=== PATIENT | male | born 1945 | race African-American/Black ===

== ENCOUNTER 2021-06-10 16:49 | Inpatient (IN) | payer BC ==
[~2021-06-10] VITALS: Ht 172.7 cm; Wt 41.7 kg
[2021-06-10] MEDS ORDERED: SODIUM POLYSTYRENE SULFONATE 15 G/60 ML BOT PO ONE (17:15)
[2021-06-10] MEDS ORDERED: DEXTROSE 50% WATER 50ML SYRINGE IV ONE (17:15)
[2021-06-10] MEDS ORDERED: CALCIUM GLUCONATE 100MG/ML 10ML VIAL IV ONE (17:15)
[2021-06-10] MEDS ORDERED: ALBUTEROL (0.083%) 2.5MG/3ML NEB HHN ONE (17:15)
[2021-06-10] MEDS ORDERED: INSULIN REGULAR (HUMULIN R) 300UNITS/3ML VIAL IV ONE (17:15)
[2021-06-10] MEDS ORDERED: SODIUM BICARBONATE 8.4% 1 MEQ/ML 50ML SYR IV ONE (17:15)
[2021-06-10 18:47] LABS: CHLORIDE 118 mEq/L (98-107)
[2021-06-10 18:49] LABS: HEMATOCRIT. 42.5 % (42.0-52.0); HEMOGLOBIN. 13.9 g/dL (14.0-18.0); MEAN CORPUSCULAR HEMOGLOBIN 27.3 pg (28.0-32.0); MEAN CORPUSCULAR VOLUME 83.5 fL (80.0-94.0); MEAN PLATELET VOLUME 8.8 fl (7.4-10.4); PLATELET 242 x1000/uL (130-400); RED BLOOD CELL COUNT 5.09 mill/uL (4.7-6.1); RED CELL DISTRIBUTION WIDTH 14.5 % (11.6-14.6)
[2021-06-10] MEDS ORDERED: CEFTRIAXONE 1 G PREMIX 50 ML IV ONE (19:30)
[2021-06-10] MEDS ORDERED: AZITHROMYCIN 500MG/250ML 250 ML IV ONE (19:30)
[2021-06-10] MEDS ORDERED: SODIUM CHLORIDE 0.9% 1,000 ML IV ONE (19:30)
[2021-06-10 21:21] LABS: PLATELET ESTIMATE NORMAL
[2021-06-10] MEDS ORDERED: SODIUM POLYSTYRENE SULFONATE 15 G/60 ML BOT PO NR (22:30)
[2021-06-10] MEDS ORDERED: ACETAMINOPHEN 325MG TABLET PO PRN ×2 (23:00)
[2021-06-10] MEDS ORDERED: CLONIDINE 0.1MG TABLET PO PRN (23:00)
[2021-06-10] MEDS ORDERED: ZOLPIDEM TARTRATE 5MG TABLET PO PRN (23:00)
[2021-06-10] MEDS ORDERED: GUAIFENESIN 200MG/10ML SUGAR FREE UDC PO PRN (23:00)
[2021-06-10] MEDS ORDERED: ONDANSETRON HCL 4MG/2ML INJ IV PRN (23:00)
[2021-06-11 00:42] LABS: CLARITY URINE CLEAR (CLEAR); COLOR URINE YELLOW (YELLOW); KETONES URINE NEGATIVE (NEGATIVE); LEUKOCYTE ESTERASE URINE NEGATIVE (NEGATIVE); NITRITE URINE NEGATIVE (NEGATIVE); OCCULT BLOOD URINE TRACE (NEGATIVE); PROTEIN URINE 3+ (NEGATIVE); SPECIFIC GRAVITY URINE 1.018 (1.005-1.030); UROBILINOGEN URINE 0.2 E.U./dL (0.2-1.0)
[2021-06-11] MEDS ORDERED: ASPIRIN 81MG TABLET PO ONE (01:15)
[2021-06-11] MEDS ORDERED: ALBUTEROL (0.083%) 2.5MG/3ML NEB HHN SCH (02:00)
[2021-06-11 04:55] LABS: BASOPHILS % 0.1 % (0.0-2.0); HEMATOCRIT. 39.5 % (42.0-52.0); HEMOGLOBIN. 13.1 g/dL (14.0-18.0); LYMPHOCYTES % 17.6 % (20.0-50.0); MEAN CORPUSCULAR HEMOGLOBIN 27.5 pg (28.0-32.0); MEAN CORPUSCULAR VOLUME 82.7 fL (80.0-94.0); MEAN PLATELET VOLUME 8.9 fl (7.4-10.4); MONOCYTES % 11.3 % (2.0-8.0); PLATELET 215 x1000/uL (130-400); RED BLOOD CELL COUNT 4.77 mill/uL (4.7-6.1)
[2021-06-11] MEDS: SODIUM CHLORIDE 0.9% INJ 3ML FLUSH IVF SCH ×3 (05:35→21:50)
[2021-06-11] MEDS: ENOXAPARIN 30MG/0.3ML SYR SUBCUT SCH (09:29)
[2021-06-11] MEDS: DEXTROSE 5% WATER 1,000 ML IV SCH ×2 (09:29→21:49)
[2021-06-11] MEDS: DEXAMETHASONE 10 MG/ML VIAL IV SCH (09:29)
[2021-06-11] MEDS: DEXT 5%/0.2% NACL 1,000 ML IV SCH ×2 (09:45→19:45)
[2021-06-11 11:37] VITALS: BP 135/73
[2021-06-11 11:40] VITALS: BP 135/73
[2021-06-11 16:00] VITALS: BP 118/69
[2021-06-11] MEDS: DOXYCYCLINE HYCLATE 100MG CAPSULE PO SCH (17:57)
[2021-06-11 20:00] VITALS: BP 135/60
[2021-06-11] MEDS ORDERED: CEFTRIAXONE 1 G PREMIX 50 ML IV SCH (20:00)
[2021-06-11] MEDS: CEFTRIAXONE 1,000 MG in DEXTROSE 5% WATER 50 ML IV SCH (21:49)
[2021-06-11 22:00] VITALS: BP 128/75
[2021-06-12 06:00] VITALS: BP 131/75
[2021-06-12] MEDS: SODIUM CHLORIDE 0.9% INJ 3ML FLUSH IVF SCH ×3 (06:00→21:43)
[2021-06-12] MEDS: DEXT 5%/0.2% NACL 1,000 ML IV SCH ×2 (06:57→17:36)
[2021-06-12 08:00] VITALS: BP 141/78
[2021-06-12] MEDS: DOXYCYCLINE HYCLATE 100MG CAPSULE PO SCH ×2 (09:11→21:43)
[2021-06-12] MEDS: ENOXAPARIN 30MG/0.3ML SYR SUBCUT SCH (09:11)
[2021-06-12] MEDS: DEXAMETHASONE 10 MG/ML VIAL IV SCH (09:11)
[2021-06-12 12:00] VITALS: BP 134/66
[2021-06-12 16:00] VITALS: BP 128/70
[2021-06-12 20:00] VITALS: BP 130/86
[2021-06-12] MEDS: CEFTRIAXONE 1,000 MG in DEXTROSE 5% WATER 50 ML IV SCH (21:43)
[2021-06-13] MEDS: DEXT 5%/0.2% NACL 1,000 ML IV SCH ×3 (01:19→21:52)
[2021-06-13 04:00] VITALS: BP 117/64
[2021-06-13] MEDS: SODIUM CHLORIDE 0.9% INJ 3ML FLUSH IVF SCH ×3 (06:19→21:52)
[2021-06-13 08:00] VITALS: BP_SYST 141; BP_SYST 165; BP_DIAS 107; BP_DIAS 72
[2021-06-13] MEDS: DEXAMETHASONE 10 MG/ML VIAL IV SCH (08:32)
[2021-06-13] MEDS: DOXYCYCLINE HYCLATE 100MG CAPSULE PO SCH ×2 (08:32→21:52)
[2021-06-13] MEDS: ENOXAPARIN 30MG/0.3ML SYR SUBCUT SCH (09:23)
[2021-06-13 11:21] LABS: HEMATOCRIT. 37.8 % (42.0-52.0); HEMOGLOBIN. 12.3 g/dL (14.0-18.0); MEAN CORPUSCULAR VOLUME 83.4 fL (80.0-94.0); MEAN PLATELET VOLUME 8.6 fl (7.4-10.4); PLATELET 314 x1000/uL (130-400); RED BLOOD CELL COUNT 4.54 mill/uL (4.7-6.1); RED CELL DISTRIBUTION WIDTH 14.3 % (11.6-14.6)
[2021-06-13 12:00] VITALS: BP 133/76
[2021-06-13] MEDS ORDERED: SODIUM POLYSTYRENE SULFONATE 15 G/60 ML BOT PO SCH (14:00)
[2021-06-13 16:00] VITALS: BP 127/67
[2021-06-13 20:00] VITALS: BP 132/67
[2021-06-13] MEDS: CEFTRIAXONE 1,000 MG in DEXTROSE 5% WATER 50 ML IV SCH (21:52)
[2021-06-13 23:42] LABS: PLATELET ESTIMATE NORMAL
[2021-06-14 04:00] VITALS: BP 147/83
[2021-06-14] MEDS: SODIUM CHLORIDE 0.9% INJ 3ML FLUSH IVF SCH ×3 (05:02→21:14)
[2021-06-14] MEDS: DEXT 5%/0.2% NACL 1,000 ML IV SCH ×2 (06:35→18:16)
[2021-06-14 07:01] LABS: BASOPHILS % 0.1 % (0.0-2.0); HEMATOCRIT. 36.8 % (42.0-52.0); HEMOGLOBIN. 12.3 g/dL (14.0-18.0); LYMPHOCYTES % 8.1 % (20.0-50.0); MEAN CORPUSCULAR HEMOGLOBIN 27.5 pg (28.0-32.0); MEAN CORPUSCULAR VOLUME 82.5 fL (80.0-94.0); MEAN PLATELET VOLUME 8.2 fl (7.4-10.4); MONOCYTES % 10.7 % (2.0-8.0); NEUTROPHILS % 81.1 % (40.0-76.0); PLATELET 307 x1000/uL (130-400); RED BLOOD CELL COUNT 4.46 mill/uL (4.7-6.1); RED CELL DISTRIBUTION WIDTH 14.2 % (11.6-14.6)
[2021-06-14 08:00] VITALS: BP 146/79
[2021-06-14] MEDS: ENOXAPARIN 30MG/0.3ML SYR SUBCUT SCH (08:35)
[2021-06-14] MEDS: DOXYCYCLINE HYCLATE 100MG CAPSULE PO SCH ×2 (08:35→20:39)
[2021-06-14] MEDS: DEXAMETHASONE 10 MG/ML VIAL IV SCH (08:35)
[2021-06-14 12:00] VITALS: BP 120/57
[2021-06-14 16:00] VITALS: BP 149/67
[2021-06-14 20:00] VITALS: BP 136/67
[2021-06-14] MEDS: CEFTRIAXONE 1,000 MG in DEXTROSE 5% WATER 50 ML IV SCH (20:40)
[2021-06-15 04:00] VITALS: BP 130/69
[2021-06-15] MEDS: SODIUM CHLORIDE 0.9% INJ 3ML FLUSH IVF SCH ×3 (04:37→21:14)
[2021-06-15] MEDS: DEXT 5%/0.2% NACL 1,000 ML IV SCH ×2 (04:37→14:02)
[2021-06-15 06:44] LABS: BASOPHILS % 0.1 % (0.0-2.0); HEMATOCRIT. 34.9 % (42.0-52.0); HEMOGLOBIN. 11.9 g/dL (14.0-18.0); LYMPHOCYTES % 10.6 % (20.0-50.0); MEAN CORPUSCULAR VOLUME 82.2 fL (80.0-94.0); MEAN PLATELET VOLUME 8.1 fl (7.4-10.4); NEUTROPHILS % 78.3 % (40.0-76.0); PLATELET 296 x1000/uL (130-400); RED BLOOD CELL COUNT 4.24 mill/uL (4.7-6.1); RED CELL DISTRIBUTION WIDTH 14.1 % (11.6-14.6)
[2021-06-15 08:00] VITALS: BP 148/61
[2021-06-15] MEDS: ENOXAPARIN 30MG/0.3ML SYR SUBCUT SCH (10:01)
[2021-06-15] MEDS: DEXAMETHASONE 10 MG/ML VIAL IV SCH (10:01)
[2021-06-15] MEDS: DOXYCYCLINE HYCLATE 100MG CAPSULE PO SCH ×2 (10:01→21:14)
[2021-06-15 12:00] VITALS: BP 136/60
[2021-06-15 13:06] LABS: ANTI-NUCLEAR ANTIBODIES DIRECT Positive (Negative)
[2021-06-15 16:00] VITALS: BP 137/67
[2021-06-15 20:00] VITALS: BP 138/63
[2021-06-15] MEDS: CEFTRIAXONE 1,000 MG in DEXTROSE 5% WATER 50 ML IV SCH (21:14)
[2021-06-16] MEDS: DEXT 5%/0.2% NACL 1,000 ML IV SCH ×3 (02:51→21:35)
[2021-06-16 04:00] VITALS: BP 139/68
[2021-06-16] MEDS: SODIUM CHLORIDE 0.9% INJ 3ML FLUSH IVF SCH ×3 (05:13→21:35)
[2021-06-16 08:00] VITALS: BP 136/45
[2021-06-16] MEDS: ENOXAPARIN 30MG/0.3ML SYR SUBCUT SCH (09:22)
[2021-06-16] MEDS: DEXAMETHASONE 10 MG/ML VIAL IV SCH (09:22)
[2021-06-16] MEDS: DOXYCYCLINE HYCLATE 100MG CAPSULE PO SCH ×2 (09:22→21:35)
[2021-06-16 12:00] VITALS: BP 124/64
[2021-06-16 16:00] VITALS: BP 121/61
[2021-06-16 20:00] VITALS: BP_SYST 119; BP_SYST 123; BP_DIAS 61; BP_DIAS 63
[2021-06-16] MEDS: CEFTRIAXONE 1,000 MG in DEXTROSE 5% WATER 50 ML IV SCH (21:35)
[2021-06-17 04:00] VITALS: BP 140/68
[2021-06-17] MEDS: SODIUM CHLORIDE 0.9% INJ 3ML FLUSH IVF SCH ×3 (05:27→21:22)
[2021-06-17] MEDS: DEXT 5%/0.2% NACL 1,000 ML IV SCH (05:28)
[2021-06-17 08:00] VITALS: BP 141/54
[2021-06-17] MEDS: DEXAMETHASONE 10 MG/ML VIAL IV SCH (09:31)
[2021-06-17] MEDS: DOXYCYCLINE HYCLATE 100MG CAPSULE PO SCH ×2 (09:31→21:22)
[2021-06-17] MEDS: ENOXAPARIN 30MG/0.3ML SYR SUBCUT SCH (09:31)
[2021-06-17 12:00] VITALS: BP 117/60
[2021-06-17 16:00] VITALS: BP 119/51
[2021-06-17] MEDS ORDERED: SODIUM POLYSTYRENE SULFONATE 15 G/60 ML BOT PO NR (17:00)
[2021-06-17 20:00] VITALS: BP 138/64
[2021-06-18] VITALS: BP 135/66
[2021-06-18 04:00] VITALS: BP 130/68
[2021-06-18] MEDS: SODIUM CHLORIDE 0.9% INJ 3ML FLUSH IVF SCH ×3 (05:31→20:28)
[2021-06-18 08:00] VITALS: BP 136/69
[2021-06-18] MEDS: DEXAMETHASONE 10 MG/ML VIAL IV SCH (09:02)
[2021-06-18] MEDS: ENOXAPARIN 30MG/0.3ML SYR SUBCUT SCH (09:02)
[2021-06-18] MEDS: DOXYCYCLINE HYCLATE 100MG CAPSULE PO SCH ×2 (09:02→20:27)
[2021-06-18 12:00] VITALS: BP 126/61
[2021-06-18 16:00] VITALS: BP 136/63
[2021-06-18 20:00] VITALS: BP 139/66
[2021-06-18 21:29] LABS: BASOPHILS % 0.1 % (0.0-2.0); HEMATOCRIT. 35.1 % (42.0-52.0); HEMOGLOBIN. 11.7 g/dL (14.0-18.0); LYMPHOCYTES % 15.1 % (20.0-50.0); MEAN CORPUSCULAR HEMOGLOBIN 27.3 pg (28.0-32.0); MEAN CORPUSCULAR VOLUME 81.9 fL (80.0-94.0); MEAN PLATELET VOLUME 8.2 fl (7.4-10.4); NEUTROPHILS % 74.8 % (40.0-76.0); PLATELET 361 x1000/uL (130-400); RED BLOOD CELL COUNT 4.29 mill/uL (4.7-6.1)
[2021-06-19] VITALS: BP 137/74
[2021-06-19 04:00] VITALS: BP 147/63
[2021-06-19] MEDS: SODIUM CHLORIDE 0.9% INJ 3ML FLUSH IVF SCH ×3 (05:12→21:05)
[2021-06-19] MEDS ORDERED: DEXTROSE 50% WATER 50ML SYRINGE IV NR (06:15)
[2021-06-19] MEDS ORDERED: SODIUM BICARBONATE 8.4% 1 MEQ/ML 50ML SYR IV NR (06:15)
[2021-06-19] MEDS ORDERED: SODIUM POLYSTYRENE SULFONATE 15 G/60 ML BOT PO NR (06:15)
[2021-06-19] MEDS ORDERED: INSULIN REGULAR (HUMULIN R) UD 100 UNITS/ML SYR IV NR (07:00)
[2021-06-19 08:00] VITALS: BP 143/67
[2021-06-19] MEDS: DOXYCYCLINE HYCLATE 100MG CAPSULE PO SCH ×2 (08:27→21:05)
[2021-06-19] MEDS: DEXAMETHASONE 10 MG/ML VIAL IV SCH (08:27)
[2021-06-19] MEDS: ENOXAPARIN 30MG/0.3ML SYR SUBCUT SCH (08:28)
[2021-06-19 10:50] LABS: BASOPHILS % 0.2 % (0.0-2.0); EOSINOPHILS % 0.1 % (0.0-5.0); HEMATOCRIT. 35.9 % (42.0-52.0); HEMOGLOBIN. 12.2 g/dL (14.0-18.0); LYMPHOCYTES % 8.4 % (20.0-50.0); MEAN CORPUSCULAR HEMOGLOBIN 27.4 pg (28.0-32.0); MEAN PLATELET VOLUME 7.8 fl (7.4-10.4); MONOCYTES % 6.9 % (2.0-8.0); NEUTROPHILS % 84.4 % (40.0-76.0); PLATELET 422 x1000/uL (130-400); RED BLOOD CELL COUNT 4.43 mill/uL (4.7-6.1); RED CELL DISTRIBUTION WIDTH 13.9 % (11.6-14.6)
[2021-06-19 12:00] VITALS: BP 143/70
[2021-06-19 16:00] VITALS: BP 137/60
[2021-06-19 20:00] VITALS: BP 133/62
[2021-06-20] VITALS: BP 150/71
[2021-06-20 04:00] VITALS: BP 139/69
[2021-06-20] MEDS: SODIUM CHLORIDE 0.9% INJ 3ML FLUSH IVF SCH ×3 (05:48→21:00)
[2021-06-20 08:00] VITALS: BP 150/66
[2021-06-20] MEDS: DOXYCYCLINE HYCLATE 100MG CAPSULE PO SCH ×2 (08:16→21:00)
[2021-06-20] MEDS: ENOXAPARIN 30MG/0.3ML SYR SUBCUT SCH (08:17)
[2021-06-20] MEDS: DEXAMETHASONE 10 MG/ML VIAL IV SCH (08:17)
[2021-06-20 12:00] VITALS: BP 138/79
[2021-06-20 14:13] LABS: BG BASE EXCESS -2.7 mmol/L (-2.0-2.0); BG CARBOXYHEMOGLOBIN 0.5 % (0.5-1.5); BG DEOXYHEMOGLOBIN 17.6 % (0.0-5.0); BG FRACTION INSPIRED OXYGEN 21; BG HCO3 ACT 20.7 mmol/L (22.0-26.0); BG METHEMOGLOBIN 0.1 % (0.0-1.5); BG OXYGEN SATURATION 82.3 % (92.0-98.5); BG OXYHEMOGLOBIN 81.8 % (94.0-97.0); BG PCO2 31.5 mmHg (35.0-45.0); BG PH 7.435 (7.350-7.450); BG PO2 44.7 mmHg (75.0-100.0); BG SAMPLE SITE RIGHT BRACHIAL; BG TOTAL HEMOGLOBIN 12.3 g/dL (12.0-18.0); BG VENT MODE ROOM AIR
[2021-06-20 16:00] VITALS: BP 112/73
[2021-06-20 20:00] VITALS: BP 128/61
[2021-06-21] VITALS: BP 130/72
[2021-06-21 04:00] VITALS: BP 144/57
[2021-06-21] MEDS: SODIUM CHLORIDE 0.9% INJ 3ML FLUSH IVF SCH ×3 (05:03→21:02)
[2021-06-21 08:00] VITALS: BP 138/74
[2021-06-21] MEDS: DEXAMETHASONE 10 MG/ML VIAL IV SCH (08:45)
[2021-06-21] MEDS: DOXYCYCLINE HYCLATE 100MG CAPSULE PO SCH ×2 (08:45→21:01)
[2021-06-21] MEDS: ENOXAPARIN 30MG/0.3ML SYR SUBCUT SCH (08:45)
[2021-06-21 08:56] LABS: BASOPHILS % 0.1 % (0.0-2.0); EOSINOPHILS % 0.3 % (0.0-5.0); HEMOGLOBIN. 11.3 g/dL (14.0-18.0); LYMPHOCYTES % 19.5 % (20.0-50.0); MEAN CORPUSCULAR HEMOGLOBIN 26.5 pg (28.0-32.0); MEAN CORPUSCULAR VOLUME 81.9 fL (80.0-94.0); MEAN PLATELET VOLUME 7.5 fl (7.4-10.4); MONOCYTES % 8.6 % (2.0-8.0); NEUTROPHILS % 71.5 % (40.0-76.0); PLATELET 399 x1000/uL (130-400); RED BLOOD CELL COUNT 4.28 mill/uL (4.7-6.1); RED CELL DISTRIBUTION WIDTH 13.9 % (11.6-14.6)
[2021-06-21 12:00] VITALS: BP 126/60
[2021-06-21 16:00] VITALS: BP 126/56
[2021-06-21 20:00] VITALS: BP 126/54
[2021-06-22] VITALS: BP 147/67
[2021-06-22 04:00] VITALS: BP 135/67
[2021-06-22] MEDS: SODIUM CHLORIDE 0.9% INJ 3ML FLUSH IVF SCH ×3 (06:50→20:42)
[2021-06-22 08:00] VITALS: BP 147/60
[2021-06-22] MEDS: DEXAMETHASONE 10 MG/ML VIAL IV SCH (08:17)
[2021-06-22] MEDS: ENOXAPARIN 30MG/0.3ML SYR SUBCUT SCH (08:17)
[2021-06-22 12:00] VITALS: BP 130/56
[2021-06-22 16:00] VITALS: BP 122/58
[2021-06-22 20:00] VITALS: BP 137/65
[2021-06-23] VITALS (7 sets, daily range): BP systolic 123–141; BP diastolic 54–88
[2021-06-23] MEDS: SODIUM CHLORIDE 0.9% INJ 3ML FLUSH IVF SCH ×3 (06:28→21:18)
[2021-06-23] MEDS: ENOXAPARIN 30MG/0.3ML SYR SUBCUT SCH (08:31)
[2021-06-23] MEDS ORDERED: IPRATROPIUM/ALBUTEROL 0.5-3(2.5)MG/3ML NEB HHN PRN (13:30)
[2021-06-23] MEDS: IPRATROPIUM/ALBUTEROL 0.5-3(2.5)MG/3ML NEB HHN SCH (21:08)
[2021-06-24] VITALS: BP 142/71
[2021-06-24] MEDS: IPRATROPIUM/ALBUTEROL 0.5-3(2.5)MG/3ML NEB HHN SCH ×4 (02:24→21:09)
[2021-06-24 04:00] VITALS: BP 142/71
[2021-06-24] MEDS: SODIUM CHLORIDE 0.9% INJ 3ML FLUSH IVF SCH ×3 (06:29→21:43)
[2021-06-24 08:00] VITALS: BP 135/59
[2021-06-24] MEDS ORDERED: MORPHINE SULFATE 2 MG/ML CPJ (NOT FOR IM USE) IV SCH (08:30)
[2021-06-24] MEDS: ENOXAPARIN 30MG/0.3ML SYR SUBCUT SCH (10:11)
[2021-06-24 12:00] VITALS: BP 125/62
[2021-06-24 16:00] VITALS: BP 150/66
[2021-06-24 20:00] VITALS: BP 145/85
[2021-06-25] VITALS: BP 133/72
[2021-06-25] MEDS: IPRATROPIUM/ALBUTEROL 0.5-3(2.5)MG/3ML NEB HHN SCH ×4 (01:29→20:21)
[2021-06-25 04:00] VITALS: BP 134/68
[2021-06-25] MEDS: SODIUM CHLORIDE 0.9% INJ 3ML FLUSH IVF SCH ×3 (05:57→21:03)
[2021-06-25 08:05] VITALS: BP 132/88
[2021-06-25] MEDS: ENOXAPARIN 30MG/0.3ML SYR SUBCUT SCH (08:54)
[2021-06-25 12:28] VITALS: BP 138/68
[2021-06-25 13:01] LABS: BASOPHILS % 0.2 % (0.0-2.0); EOSINOPHILS % 0.2 % (0.0-5.0); HEMATOCRIT. 37.2 % (42.0-52.0); HEMOGLOBIN. 12.4 g/dL (14.0-18.0); LYMPHOCYTES % 9.2 % (20.0-50.0); MEAN CORPUSCULAR HEMOGLOBIN 27.2 pg (28.0-32.0); MEAN CORPUSCULAR VOLUME 81.6 fL (80.0-94.0); MEAN PLATELET VOLUME 7.7 fl (7.4-10.4); MONOCYTES % 12.1 % (2.0-8.0); NEUTROPHILS % 78.3 % (40.0-76.0); PLATELET 372 x1000/uL (130-400); RED BLOOD CELL COUNT 4.55 mill/uL (4.7-6.1); RED CELL DISTRIBUTION WIDTH 13.7 % (11.6-14.6)
[2021-06-25 16:25] VITALS: BP 132/84
[2021-06-25 17:16] LABS: BG BASE EXCESS -2.6 mmol/L (-2.0-2.0); BG CARBOXYHEMOGLOBIN 0.2 % (0.5-1.5); BG FRACTION INSPIRED OXYGEN 21; BG HCO3 ACT 19.8 mmol/L (22.0-26.0); BG METHEMOGLOBIN 0.1 % (0.0-1.5); BG OXYHEMOGLOBIN 87.7 % (94.0-97.0); BG PCO2 27.9 mmHg (35.0-45.0); BG PO2 50.9 mmHg (75.0-100.0); BG SAMPLE SITE LEFT BRACHIAL; BG TOTAL HEMOGLOBIN 12.7 g/dL (12.0-18.0); BG VENT MODE ROOM AIR
[2021-06-25 20:00] VITALS: BP 148/74
[2021-06-26] VITALS: BP 138/79
[2021-06-26] MEDS: IPRATROPIUM/ALBUTEROL 0.5-3(2.5)MG/3ML NEB HHN SCH ×2 (02:03→20:30)
[2021-06-26 04:00] VITALS: BP 131/81
[2021-06-26] MEDS: SODIUM CHLORIDE 0.9% INJ 3ML FLUSH IVF SCH ×3 (05:01→21:12)
[2021-06-26 08:00] VITALS: BP_SYST 132; BP_SYST 136; BP_DIAS 67; BP_DIAS 79
[2021-06-26] MEDS: ENOXAPARIN 30MG/0.3ML SYR SUBCUT SCH (08:33)
[2021-06-26 09:26] LABS: HEMATOCRIT. 35.9 % (42.0-52.0); HEMOGLOBIN. 11.8 g/dL (14.0-18.0); MEAN CORPUSCULAR VOLUME 82.1 fL (80.0-94.0); MEAN PLATELET VOLUME 7.8 fl (7.4-10.4); PLATELET 343 x1000/uL (130-400); RED BLOOD CELL COUNT 4.37 mill/uL (4.7-6.1); RED CELL DISTRIBUTION WIDTH 14.1 % (11.6-14.6)
[2021-06-26] MEDS ORDERED: SODIUM POLYSTYRENE SULFONATE 15 G/60 ML BOT PO NR ×2 (11:00→12:30)
[2021-06-26 12:00] VITALS: BP 132/79
[2021-06-26 12:10] LABS: PLATELET ESTIMATE NORMAL
[2021-06-26 16:00] VITALS: BP 137/71
[2021-06-26 20:00] VITALS: BP 141/79
[2021-06-27] VITALS: BP 102/67
[2021-06-27] MEDS: IPRATROPIUM/ALBUTEROL 0.5-3(2.5)MG/3ML NEB HHN SCH ×4 (02:17→20:34)
[2021-06-27 04:00] VITALS: BP 130/73
[2021-06-27] MEDS: SODIUM CHLORIDE 0.9% INJ 3ML FLUSH IVF SCH ×3 (06:00→21:46)
[2021-06-27 06:25] LABS: HEMATOCRIT. 36.7 % (42.0-52.0); HEMOGLOBIN. 12.3 g/dL (14.0-18.0); MEAN CORPUSCULAR HEMOGLOBIN 27.6 pg (28.0-32.0); MEAN CORPUSCULAR VOLUME 81.9 fL (80.0-94.0); MEAN PLATELET VOLUME 7.9 fl (7.4-10.4); PLATELET 359 x1000/uL (130-400); RED BLOOD CELL COUNT 4.48 mill/uL (4.7-6.1); RED CELL DISTRIBUTION WIDTH 14.1 % (11.6-14.6)
[2021-06-27 08:00] VITALS: BP 130/70
[2021-06-27] MEDS: ENOXAPARIN 30MG/0.3ML SYR SUBCUT SCH (08:53)
[2021-06-27] MEDS ORDERED: SODIUM POLYSTYRENE SULFONATE 15 G/60 ML BOT PO NR (11:00)
[2021-06-27 12:00] VITALS: BP 128/72
[2021-06-27 15:41] LABS: PLATELET ESTIMATE NORMAL
[2021-06-27 16:00] VITALS: BP 128/70
[2021-06-27 20:00] VITALS: BP 118/57
[2021-06-28] VITALS (7 sets, daily range): BP systolic 107–122; BP diastolic 68–71
[2021-06-28] MEDS: IPRATROPIUM/ALBUTEROL 0.5-3(2.5)MG/3ML NEB HHN SCH ×4 (01:39→20:48)
[2021-06-28] MEDS: SODIUM CHLORIDE 0.9% INJ 3ML FLUSH IVF SCH ×3 (05:58→22:00)
[2021-06-28 06:50] LABS: BASOPHILS % 0.6 % (0.0-2.0); EOSINOPHILS % 0.7 % (0.0-5.0); HEMATOCRIT. 31.2 % (42.0-52.0); HEMOGLOBIN. 10.6 g/dL (14.0-18.0); LYMPHOCYTES % 15.7 % (20.0-50.0); MEAN CORPUSCULAR HEMOGLOBIN 27.7 pg (28.0-32.0); MEAN CORPUSCULAR VOLUME 81.8 fL (80.0-94.0); MEAN PLATELET VOLUME 8.1 fl (7.4-10.4); MONOCYTES % 14.1 % (2.0-8.0); NEUTROPHILS % 68.9 % (40.0-76.0); PLATELET 299 x1000/uL (130-400); RED BLOOD CELL COUNT 3.81 mill/uL (4.7-6.1); RED CELL DISTRIBUTION WIDTH 13.6 % (11.6-14.6)
[2021-06-28] MEDS: ENOXAPARIN 30MG/0.3ML SYR SUBCUT SCH (08:59)
[2021-06-29] VITALS: BP 118/63
[2021-06-29] MEDS: IPRATROPIUM/ALBUTEROL 0.5-3(2.5)MG/3ML NEB HHN SCH ×2 (02:11→08:38)
[2021-06-29 04:00] VITALS: BP 108/60
[2021-06-29 07:00] LABS: BASOPHILS % 0.5 % (0.0-2.0); EOSINOPHILS % 1.9 % (0.0-5.0); HEMATOCRIT. 28.4 % (42.0-52.0); HEMOGLOBIN. 9.6 g/dL (14.0-18.0); LYMPHOCYTES % 17.5 % (20.0-50.0); MEAN CORPUSCULAR HEMOGLOBIN 27.5 pg (28.0-32.0); MEAN CORPUSCULAR VOLUME 81.2 fL (80.0-94.0); MEAN PLATELET VOLUME 7.7 fl (7.4-10.4); MONOCYTES % 12.8 % (2.0-8.0); NEUTROPHILS % 67.3 % (40.0-76.0); PLATELET 280 x1000/uL (130-400); RED CELL DISTRIBUTION WIDTH 13.4 % (11.6-14.6)
[2021-06-29 08:00] VITALS: BP 116/58
[2021-06-29] MEDS: ENOXAPARIN 30MG/0.3ML SYR SUBCUT SCH (08:17)
== END 2021-06-29 12:05 | disposition home or self-care (01) | DRG 871 ==
LOC: ER 16:49 → 7EST 19:42 → EDBEDREQTM 19:45 → EDBEDREQ 19:45 → ENRESERV 06-11 08:52 → 6WST 06-23 09:51
PROVIDERS: ADMIT Internal Medicine; ATTEND Internal Medicine
DX: A41.89 Other specified sepsis (principal); J12.82 Pneumonia due to coronavirus disease 2019; J96.01 Acute respiratory failure with hypoxia; U07.1 COVID-19; E87.0 Hyperosmolality and hypernatremia; N17.9 Acute kidney failure, unspecified; I44.7 Left bundle-branch block, unspecified; E87.5 Hyperkalemia; I12.9 Hypertensive chronic kidney disease with stage 1 through stage 4 chronic kidney disease, or unspecified chronic kidney disease; N18.9 Chronic kidney disease, unspecified; Z87.891 Personal history of nicotine dependence
CPT/HCPCS: 36415; 36600; 71045; 76770; 80048; 80053; 81003; 82375; 82550; 82570; 82805; 82962; 83605; 83880; 84145; 84156; 84484; 85025; 86038; 86160; 87426; 87635; 93005; 93306; 94640; 94644; 97110; 97162; 97166; 97530; 97535; 99291; J0456; J0610; J0696; J1100; J1650; J1815; J2270; J2405; J3490; J7030; J7060